=== PATIENT | male | born 1980 | race Caucasian/White ===

== ENCOUNTER 2024-05-30 01:24 | Emergency (ER) | payer MEDICAID ==
[~2024-05-30] VITALS: Ht 185.4 cm; Wt 70.0 kg
[2024-05-30 01:59] VITALS: BP 122/74; PULSE 99; RESP 20; TEMP 98; O2SAT 99
== END 2024-05-30 02:15 | disposition home or self-care (01) ==
LOC: ER 01:25
DX: S29.9XXA Unspecified injury of thorax, initial encounter (principal); W01.0XXA Fall on same level from slipping, tripping and stumbling without subsequent striking against object, initial encounter; Y93.89 Activity, other specified; Y92.89 Other specified places as the place of occurrence of the external cause; Y99.8 Other external cause status
CPT/HCPCS: 71045; 99283